=== PATIENT | female | born 1985 | race Two or more races ===

== ENCOUNTER 2017-06-10 19:04 | Emergency (ER) | payer OTHER ==
[2017-06-10 19:11] VITALS: TEMP 98.2
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
[2017-06-10] MEDS ORDERED: TDAP ADULT 0.5 ML INJ (BOOSTRIX) IM ONE (19:24)
[2017-06-10] MEDS ORDERED: LORazepam 0.5 MG TAB PO ONE (19:32)
[2017-06-10] MEDS ORDERED: CEPHALEXIN 500 MG CAP PO ONE (20:04)
[2017-06-10] MEDS ORDERED: CEPHALEXIN 500MG PREPACK#4 BTL TAKEHOME ONE ×2 (21:41→21:44)
[2017-06-10] MEDS ORDERED: HYDROCOD/APAP 5/325 PREPACK#6 BTL TAKEHOME ONE ×2 (21:41→21:44)
[2017-06-10 21:50] VITALS: BP 110/88; PULSE 93; RESP 18; O2SAT 92
== END 2017-06-10 21:52 | disposition home or self-care (01) ==
PROC: 0HQQXZZ Repair Finger Nail, External Approach (ICD-10-PCS; principal; 2017-06-10)
PROC: 0HQGXZZ Repair Left Hand Skin, External Approach (ICD-10-PCS; 2017-06-10)
DX: S61.211A Laceration without foreign body of left index finger without damage to nail, initial encounter (principal); S61.223A Laceration with foreign body of left middle finger without damage to nail, initial encounter; Z23 Encounter for immunization; V43.92XA Unspecified car occupant injured in collision with other type car in traffic accident, initial encounter; Y92.10 Unspecified residential institution as the place of occurrence of the external cause; Y93.89 Activity, other specified
CPT/HCPCS: L3925